=== PATIENT | male | born 1940 | race Caucasian/White ===

== ENCOUNTER → 2021-08-16 | Outpatient (CLI) | payer MEDICARE, OTHER ==
--- NOTE | 2021-08-16 16:18 | RAD ---
XR FOOT_RIGHT 3 VIEWS DATE: 08/16/2021 2:42 PM INDICATION: BIG TOE PAIN AFTER STUBBING IT A FEW DAYS AGO COMPARISON: None. FINDINGS: Bones: Acute nondisplaced fracture of the distal tuft of the first distal phalanx. Prominent plantar calcaneal enthesophyte. Joints: Mild degenerative changes of the first MTP joint and the IP joints. Moderate degenerative lamine nges of the midfoot. Miscellaneous: Plantar fascia calcifications. IMPRESSION: Acute nondisplaced first distal phalanx fracture Electronically signed by: Davidson Tellez MD (08/16/2021 4:15 PM) [id number]
== END ==
LOC: RAD 14:34
PROVIDERS: ATTEND Family Medicine
DX: S92.424A Nondisplaced fracture of distal phalanx of right great toe, initial encounter for closed fracture (principal); M19.071 Primary osteoarthritis, right ankle and foot; M77.31 Calcaneal spur, right foot; X58.XXXA Exposure to other specified factors, initial encounter; Y93.89 Activity, other specified; Y92.89 Other specified places as the place of occurrence of the external cause; Y99.8 Other external cause status
CPT/HCPCS: 73630